=== PATIENT | female | born 1985 | race Asian ===

== ENCOUNTER 2016-06-20 20:55 | Emergency (ER) | payer OTHER ==
--- NOTE | 2016-06-20 20:28 | Progress Note ---
Subjective General 30 at 29 3/7 weeks getation, had some contractions at [facility]. Was sent to the ER by ambulance. Has had 2 L fluids, no contractions and fibrinectin neg. A/P : No labor, UTI I would rec ER eval and possible treatment with keflex 500mg TID x 7day as she is not in labor.
--- NOTE | 2016-06-20 20:28 | Progress Note ---
Subjective General 29 at 29 3/7 weeks getation, had some contractions at [facility]. Was sent to the ER by ambulance. Has had 2 L fluids, no contractions and fibrinectin neg. A/P : No labor, UTI I would rec ER eval and possible treatment with keflex 500mg TID x 7day as she is not in labor.
--- NOTE | 2016-06-20 21:45 | ED NURSING NOTES ---
Clinical Report - Nurses [facility] [address] [place] [address] 06/20/2016 20:56 Patient: LAI KIM NURSING PROGRESS NOTES ( pt's came to the electrician front and said "we do not want to be seen in the ER, we want to go to her Dr tomorrow".). --21:50 Alie Lester R.N. DISPOSITION / DISCHARGE The patient left the Emergency Department before triage. The patient appears to be alert, oriented x4, coherent and in no acute distress. She notified the ED staff prior to leaving the department and stated is leaving the ED due to personal reasons. Notified the charge nurse of patient departure. Prior to leaving the ED, she was advised to return if needed. She was informed of the risks of leaving and verbalized understanding of these risks. Patient signed form prior to leaving. She left the Emergency Department ambulatory and via private vehicle. ( pt will follow up with PCP, did not want to check into ER, was told to by OB.). --21:41 Alie Lester R.N. Locked/Released at 06/20/2016 21:50 by Alie Lester R.N.
--- NOTE | 2016-06-20 21:45 | ED NURSING NOTES ---
Clinical Report - Nurses [facility] [address] [place] [address] 06/20/2016 20:56 Patient: LAI KIM NURSING PROGRESS NOTES ( pt's came to the desk pen set assembler and said "we do not want to be seen in the ER, we want to go to her Dr tomorrow".). --21:50 Alie Lester R.N. DISPOSITION / DISCHARGE The patient left the Emergency Department before triage. The patient appears to be alert, oriented x4, coherent and in no acute distress. She notified the ED staff prior to leaving the department and stated is leaving the ED due to personal reasons. Notified the charge nurse of patient departure. Prior to leaving the ED, she was advised to return if needed. She was informed of the risks of leaving and verbalized understanding of these risks. Patient signed form prior to leaving. She left the Emergency Department ambulatory and via private vehicle. ( pt will follow up with PCP, did not want to check into ER, was told to by OB.). --21:41 Alie Lester R.N. Locked/Released at 06/20/2016 21:50 by Alie Lester R.N.
--- NOTE | 2016-06-20 21:50 | ED MAR SUMMARY ---
..... Medication Administration Record [facility] [address] [place], [place] [id number] Patient: LAI KIM Visit ID: [id number] 30y, F Weight: (not available) Height/Length: (not available) BMI: (not available) ALLERGIES:
--- NOTE | 2016-06-20 21:50 | ED MED RECONCILIATION SUMMARY ---
Patient: LAI KIM Medication Reconciliation Report [facility] VisitID: [id number] [address] [place] [address] 30y, F Registration Date/Time: 06/20/2016 Weight: (not available) Height/Length: (not available) BMI: (not available) ALLERGIES: The patient's Home Medications are listed below: Not obtained. The source(s) of the original Home Medication information: Not obtained. The following Medications were given to the patient in the Emergency Department: None. The following Medications were prescribed to the patient: None.
--- NOTE | 2016-06-20 21:50 | ED MAR SUMMARY ---
..... Medication Administration Record [facility] [address] [place], [place] [id number] Patient: LAI KIM Visit ID: [id number] 30y, F Weight: (not available) Height/Length: (not available) BMI: (not available) ALLERGIES:
--- NOTE | 2016-06-20 21:50 | ED MED RECONCILIATION SUMMARY ---
Patient: LAI KIM Medication Reconciliation Report [facility] VisitID: [id number] [address] [place] [address] 30y, F Registration Date/Time: 06/20/2016 Weight: (not available) Height/Length: (not available) BMI: (not available) ALLERGIES: The patient's Home Medications are listed below: Not obtained. The source(s) of the original Home Medication information: Not obtained. The following Medications were given to the patient in the Emergency Department: None. The following Medications were prescribed to the patient: None.
== END 2016-06-20 21:35 | disposition left against medical advice (07) ==
LOC: EDSTATUS 20:55 → ED SRH 20:56
PROC: 4A0HXCZ Measurement of Products of Conception, Cardiac Rate, External Approach (ICD-10-PCS; principal; 2016-06-20)
DX: O23.43 Unspecified infection of urinary tract in pregnancy, third trimester (principal); Z3A.29 29 weeks gestation of pregnancy
CPT/HCPCS: 40003; 40016; 90004; 90469; 91224; 92760; 92761; 92762; 92763; 92764; 92765; 92766; 92767